=== PATIENT | female | born 1985 | race Caucasian/White ===

== ENCOUNTER 2016-06-27 15:20 | Emergency (ER) | payer OTHER ==
[~2016-06-27] VITALS: Ht 157.5 cm; Wt 94.9 kg
[~2016-06-27 15:20] MED LIST: AMBIEN10 MG PO; AMOX TR-K CLV 875-12; ATARAX,VISTARIL25 MG PO; BACTROBAN NASAL1 G1 BOTH NARES; BUSPAR10 MG PO; CLEOCIN300 MG; CLEOCIN300 MG PO; CLONAZEPAM1 MG PO; DIAZEPAM10 MG PO; ELAVIL25 MG; ENDOCET 10-3251 EACH; ENDOCET 7.5-321 EACH PO; FLEXERIL10 MG PO; HYDROXYZINE PAM50 MG PO; KEFLEX500 MG PO; KLONOPIN1 MG PO; LATUDA20 MG; LATUDA40 MG PO; LORAZEPAM0.5 MG PO; MIRALAX17 GM PO; MOBIC7.5 MG PO; OXYCODONE-APAP1 EACH; PAXIL20 MG; PERCOCET 10/1 TABLET PO; PERCOCET 5/31 TABLET; PERCOCET 5/31 TABLET PO; PRILOSEC10 MG PO; PRILOSEC20 MG; PRILOSEC20 MG PO; SEROQUEL12.5 MG; SERTRALINE HCL100 MG PO; SERTRALINE HCL50 MG PO; SILVADENE20 GM TP; VALIUM10 MG; VIVITROL380 MG/3.4 IM; ZANTAC 2525 MG PO; ZOFRAN ODT4 MG PO; ZOFRAN ODT8 MG PO; ZOLOFT50 MG PO
[2016-06-27 16:06] LABS: HEMATOCRIT 47.1 % (36.0-46.0); MCH 31.5 PG (29.0-34.0); MCV 92.7 FL (83-99); MEAN PLAT.VOLUME 9.3 uM^3 (9.5-12.4); PLATELET COUNT 299 K/uL (156-360); RBC DIS.WIDTH-CV 14.1 % (11.8-14.6); RBC DIS.WIDTH-SD 46.4 % (39-53); RED BLOOD COUNT 5.08 M/uL (3.80-5.20); WHITE BLOOD COUNT 10.2 K/uL (4.1-10.2)
[2016-06-27 16:16] LABS: CHLORIDE 109 mEq/L (99-109); POTASSIUM 4.3 mEq/L (3.7-5.4); SODIUM 144 mEq/L (136-147)
[2016-06-27 16:19] LABS: GLUCOSE 112 mg/dL (70-99)
[2016-06-27 16:20] LABS: ANION GAP 12 MEQ/L (2-14)
[2016-06-27 16:21] LABS: TOTAL BILIRUBIN 0.5 mg/dL (0.0-1.0)
[2016-06-27 16:22] LABS: ALKALINE PHOSPHATASE 49 IU/L (3-129); GFR ESTIMATE (CALCULATED) > 59 mL/min/
[2016-06-27 16:23] LABS: UREA NITROGEN (BUN) 15 mg/dL (9-23)
[2016-06-27 16:31] LABS: ADD MIUA? YES; BILIRUBIN NEGATIVE; BLOOD NEGATIVE; COLOR YELLOW ((YELLOW)); GLUCOSE (STRIP) NEGATIVE; KETONES NEGATIVE; LEUKOCYTES NEGATIVE; NITRITE NEGATIVE; PH, URINE 8.5 (5-8); PROTEIN (STRIP) TRACE; SPECIFIC GRAVITY 1.015 (1.000-1.030)
[2016-06-27 16:39] LABS: D-DIMER ELISA 0.23 mg/L FEU (< 0.57)
[2016-06-27 16:43] LABS: AMPHETAMINE NEGATIVE (500 ng/mL); BARBITURATES NEGATIVE (200 ng/mL); BENZODIAZEPINES NEGATIVE (150 ng/mL); COCAINE NEGATIVE (150 ng/mL); INTERNAL CONTROLS VALID? YES; METHADONE NEGATIVE (200 ng/mL); METHAMPHETAMINE NEGATIVE (500 ng/mL); OPIATES (MORPHINE) NEGATIVE (100 ng/mL); OXYCODONE NEGATIVE (100 ng/mL); PHENCYCLIDINE NEGATIVE (25 ng/mL); PROPOXYPHENE NEGATIVE (300 ng/mL); THC CANNABINOIDS PRESUMPTIVE POSITIVE (50 ng/mL); TRICYCLIC ANTIDEPRESSANTS NEGATIVE (300 ng/mL)
[2016-06-27 16:44] LABS: ADD MEDTOX COMMENT Y
[2016-06-27 16:49] LABS: SERUM ETHYL ALCOHOL < 10 mg/dL
[2016-06-27 16:52] LABS: LIPASE 48 U/L (1.0-51.0)
[2016-06-27 17:02] LABS: BACTERIA RARE; CASTS NONE SEEN /LPF; CRYSTALS PRESENT; EPITHELIAL CELLS RARE; MUCUS NONE SEEN; RED BLOOD CELLS RARE /HPF (0-5); UCUL ADDED? NO; WHITE BLOOD CELLS RARE /HPF (0-5)
[2016-06-27 17:03] LABS: AMORPHOUS PHOSPHATE CRYSTALS 3+
[2016-06-27] MEDS ORDERED: BENTYL20 MG PO (19:35)
[2016-06-27] MEDS ORDERED: MIRALAX255 GM PO (19:35)
[2016-06-27 20:24] VITALS: BP 127/68
== END 2016-06-27 20:25 | disposition home or self-care (01) ==
LOC: EME 15:20
DX: R10.12 Left upper quadrant pain (principal); R74.8 Abnormal levels of other serum enzymes; N20.0 Calculus of kidney; K59.00 Constipation, unspecified; K21.9 Gastro-esophageal reflux disease without esophagitis; F17.200 Nicotine dependence, unspecified, uncomplicated; Z87.442 Personal history of urinary calculi
CPT/HCPCS: 76705; 76775; 80053; 81003; 83690; 84702; 84999; 85027; 85379; 99281; 99285; G0480; J1885; J7030

== ENCOUNTER 2017-06-14 08:47 | Emergency (ER) | payer OTHER ==
[~2017-06-14] VITALS: Ht 157.5 cm; Wt 107.3 kg
[~2017-06-14 08:47] MED LIST changes: +BENTYL20 MG PO; +CLINDAMYCIN HC150 MG PO; +MIRALAX255 GM PO; +NAPROXEN500 MG PO
[2017-06-14 08:50] VITALS: BP 153/101
== END 2017-06-14 09:22 | disposition left against medical advice (07) ==
LOC: EME 08:47
DX: L02.31 Cutaneous abscess of buttock (principal); R19.7 Diarrhea, unspecified; R10.9 Unspecified abdominal pain; Z53.21 Procedure and treatment not carried out due to patient leaving prior to being seen by health care provider